=== PATIENT | female | born 1930 | race Caucasian/White ===

== ENCOUNTER 2021-07-07 06:21 | Day surgery (SDC) | payer OTHER ==
[~2021-07-07 06:21] MED LIST: AMITRIP PO; AVAPRO150 MG PO; CDP PO; GLUCOTROL10 MG PO; LANTUS SOLOSTAR3 ML SQ; LIPITOR20 MG PO; PLAVIX75 MG PO; XANAX2 MG PO; ZANTAC300 MG PO
== END 2021-07-07 13:41 | disposition home or self-care (01) ==
LOC: CIR.AMB 06:21 → AMB-ENDOS 06:21
PROVIDERS: ATTEND Colon & Rectal Surgery
DX: D12.3 Benign neoplasm of transverse colon (principal); Z20.822 Contact with and (suspected) exposure to COVID-19; I10 Essential (primary) hypertension; E11.9 Type 2 diabetes mellitus without complications; Z85.118 Personal history of other malignant neoplasm of bronchus and lung